=== PATIENT | female | born 1940 | race Caucasian/White ===

== ENCOUNTER 2020-12-21 18:49 | Emergency (ER) | payer MEDICARE, BC ==
[~2020-12-21 18:49] MED LIST: EPINEPHrine 10 ML SYRINGE (0.1 MG/ML) ONE; SODIUM BICARB 8.4% 50 ML SYR (1 MEQ/ML) ONE
[2020-12-21 18:54] LABS: Glucose,Whole Blood 193 mg/dL (75-99)
[2020-12-21] MEDS ORDERED: SODIUM CHLORIDE 0.9% 1,000 ML IV STA (18:57)
[2020-12-21 18:59] VITALS: TEMP 97
[2020-12-21] MEDS: NOREPINEPHRINE 4 MG in SODIUM CHLORIDE 0.9% 250 ML IV SCH ×2 (19:04→20:00)
--- NOTE | 2020-12-21 19:05 | ED ---
CPR HPI - General Chief Complaint: Cardiac Arrest/CPR Stated Complaint: cardiac arrest Time Seen by Provider: 12/21/20 18:49 Source: family, EMS, RN notes reviewed Mode of arrival: EMS Limitations: no limitations - History of Present Illness Initial Comments: This 80-year-old female who recently had a left hip replacement who was about her unusual activity and was on a commode when she apparently suddenly collapsed this did occur at around 17:35 5 PM. CPR was started right away and EMS was summoned she was given multiple ACLS medications and defibrillation shocks 6 for V. tach 2. Torsades to agonal rhythm. She was on a Lalo 3 compression device condition. Possible trauma reported as the patient was on a commode and did apparently fall sideways off of it. She did come in with a c-collar on. blood sugar was initially 58 she was given D50. CPR was in progress upon arrival. The patient was intubated by a #7 oral tracheal tube by paramedics. MD Complaint: collapsed during rest - Related Data Home Medications Medication Instructions Recorded Confirmed Acetaminophen [Tylenol Arthritis] 650 mg PO Q6H PRN 12/21/20 12/21/20 Aspirin EC [Ecotrin Low Dose] 81 mg PO BID 12/21/20 12/21/20 Insulin Aspart [NovoLOG Flexpen] 20 units SQ BID@0900,1700 12/21/20 12/21/20 Labetalol [Trandate] 200 mg PO Q8H 12/21/20 12/21/20 Sennosides [Senna] 8.6 mg PO Q12H PRN 12/21/20 12/21/20 calcitrioL [Rocaltrol] 0.25 mcg PO DAILY 12/21/20 12/21/20 hydrALAZINE HCL [Apresoline] 50 mg PO BID 12/21/20 12/21/20 Allergies Allergy/AdvReac Type Severity Reaction Status Date / Time No Known Allergies Allergy Verified 12/21/20 20:07 Review of Systems ROS Statement: Those systems with pertinent positive or pertinent negative responses have been documented in the HPI. ROS Other: All systems not noted in ROS Statement are negative. Limitations: ROS unobtainable due to patients medical condition Past Medical History Past Medical History: Unable to Obtain History of Any Multi-Drug Resistant Organisms: Unobtainable Past Surgical History: Unable to Obtain Past Psychological History: Unable to Obtain Smoking Status: Never smoker Past Alcohol Use History: Unable to Obtain Past Drug Use History: Unable to Obtain General Exam - General Exam Comments Initial Comments: This is a well-developed well-nourished unresponsive female CPR progress good pulses with the Lalo 3 device. Patient had been orotracheally intubated. Good breath sounds bilaterally. Limitations: no limitations, altered mental status, physical limitation General appearance: other Head exam: Present: atraumatic (Unresponsive), normocephalic, normal inspection Eye exam: Present: other (Pupils Wil 4 mm and) ENT exam: Present: other (Orotracheal tube in place) Neck exam: Present: normal inspection, other (No stridor JVD or bruits). Absent: tenderness, meningismus, lymphadenopathy Respiratory exam: Present: normal lung sounds bilaterally (With bag valve) Cardiovascular Exam: Present: regular rate, bradycardia GI/Abdominal exam: Present: soft, distended Rectal exam: Present: deferred Extremities exam: Present: normal inspection Back exam: Present: normal inspection Neurological exam: Present: altered, other (Unresponsive) Psychiatric exam: Present: other (Unable to evaluate) Skin exam: Present: dry, intact, pallor Course Vital Signs 12/21/20 12/21/20 12/21/20 18:50 19:00 19:06 Temperature 97.0 F L Pulse Rate 67 Pulse Rate [ 67 Dcs Engineer ] Respiratory 12 Rate Blood Pressure 117/44 73/37 O2 Sat by Pulse 100 Oximetry 12/21/20 12/21/20 12/21/20 19:22 19:41 20:44 Temperature Pulse Rate 72 72 68 Pulse Rate [ Dcs Engineer ] Respiratory 18 22 Rate Blood Pressure 91/46 115/48 110/53 O2 Sat by Pulse 100 100 Oximetry 12/21/20 12/21/20 12/21/20 21:17 21:44 22:11 Temperature Pulse Rate 61 64 56 L Pulse Rate [ Dcs Engineer ] Respiratory 22 24 19 Rate Blood Pressure 78/42 99/40 113/100 O2 Sat by Pulse 98 98 95 Oximetry - Reevaluation(s) Reevaluation #1: 12/21/20 19:05 The Lalo 111 produced positive and bilateral equal pulses she did maintain a blood pressure. 12/21/20 22:05 Reevaluation #2: 01/23/21 22:06 Patient was found have spontaneous return of circulation did maintain a blood pressure and pulse without Allo device and CPR. She however did develop hypotension and did require pressors and a central line Reevaluation #3: 12/21/20 22:08 I did a long discussion with the patient's daughters regarding the events and findings thus far. After discussion together the patient will remain on a ventilator and like supportive tonight she was noted to be moving her extremities. It is their thought however that the patient does go back into a cardiac arrest that cannot be treated. Supportive care only. Reevaluation #4: 12/21/20 22:14 Cervical collar was removed CT head neck are negative for acute findings. X-ra ys did show evidence of pneumonia Procedures - Central Line Placement Right SC Consent Obtained: emergent situation Patient Placed on Monitor/Pulse Ox: Yes Prep: mask, gown, gloves, other Central Line Prep: Chlorhexidine scrub Local Anesthesia Used: Lidocaine 1% Amount of Anesthesia Used (mls): 5 Ultrasound Used for Placement: No Central Line Lumen Inserted: triple Bloods Obtained for Lab: No Central Line Position: good blood return, all ports aspirated, flushed, capped, sutured in place with 3-0 nylon Dressing Applied: Tegaderm Post Procedure X-Ray: tip of catheter in good position Patient Tolerated Procedure: well Complications: none Medical Decision Making - Lab Data Result diagrams: 12/21/20 18:59 12/21/20 18:59 Lab Results 12/21/20 12/21/20 12/21/20 Range/Units 17:16 18:53 18:59 WBC 10.9 H (3.8-10.6) k/uL RBC 3.20 L (3.80-5.40) m/uL Hgb 7.3 L (11.4-16.0) gm/dL Hct 23.3 L (34.0-46.0) % MCV 72.8 L (80.0-100.0) fL MCH 22.9 L (25.0-35.0) pg MCHC 31.5 (31.0-37.0) g/dL RDW 16.7 H (11.5-15.5) % Plt Count 89 L (150-450) k/uL MPV 8.6 Neutrophils % (Manual) 38 % Band Neuts % (Manual) 18 % Lymphocytes % (Manual) 37 % Monocytes % (Manual) 1 % Eosinophils % (Manual) 1 % Metamyelocytes % 5 % Myelocytes % 1 % Neutrophils # (Manual) 6.10 (1.3-7.7) k/uL Lymphocytes # (Manual) 4.03 (1.0-4.8) k/uL Monocytes # (Manual) 0.11 (0-1.0) k/uL Eosinophils # (Manual) 0.11 (0-0.7) k/uL Metamyelocytes # (Man) 0.55 H (0) k/uL Myelocytes # (Manual) 0.11 H (0) k/uL Nucleated RBCs 22 H (0-0) /100 WBC Manual Slide Review Performed Hypochromasia Moderate Poikilocytosis Slight Anisocytosis Slight Microcytosis Moderate Ovalocytes Present Fragmented RBCs Present PT (9.0-12.0) sec INR (<1.2) APTT (22.0-30.0) sec D-Dimer (<0.60) mg/L FEU Sample Site ABG pH (7.35-7.45) ABG pCO2 (35-45) mmHg ABG pO2 (83-108) mmHg ABG HCO3 (21-25) mmol/L ABG Total CO2 (19-24) mmol/L ABG O2 Saturation (94-97) % ABG Base Excess mmol/L Edwin Test FiO2 % Sodium (137-145) mmol/L Potassium (3.5-5.1) mmol/L Chloride (98-107) mmol/L Carbon Dioxide (22-30) mmol/L Anion Gap mmol/L BUN (7-17) mg/dL Creatinine (0.52-1.04) mg/dL Est GFR (CKD-EPI)AfAm (>60 ml/min/1.73 sqM) Est GFR (CKD-EPI)NonAf (>60 ml/min/1.73 sqM) Glucose (74-99) mg/dL POC Glucose (mg/dL) 193 H (75-99) mg/dL POC Glu Egg Buyer ID Wolof, Yandy Calcium (8.4-10.2) mg/dL Magnesium (1.6-2.3) mg/dL Total Bilirubin (0.2-1.3) mg/dL AST (14-36) U/L ALT (4-34) U/L Alkaline Phosphatase (38-126) U/L Creatine Kinase (30-135) U/L Troponin I (0.000-0.034) ng/mL Total Protein (6.3-8.2) g/dL Albumin (3.5-5.0) g/dL TSH (0.465-4.680) mIU/L Urine Color Yellow Urine Appearance Cloudy H (Clear) Urine pH 5.0 (5.0-8.0) Ur Specific [place] 1.015 (1.001-1.035) Urine Protein 1+ H (Negative) Urine Glucose (UA) Negative (Negative) Urine Ketones Negative (Negative) Urine Blood Trace H (Negative) Urine Nitrite Negative (Negative) Urine Bilirubin Negative (Negative) Urine Urobilinogen 2.0 (<2.0) mg/dL Ur Leukocyte Esterase Small H (Negative) Urine RBC 1 (0-5) /hpf Urine WBC 7 H (0-5) /hpf Ur Squamous Epith Cells 2 (0-4) /hpf Urine Bacteria Rare H (None) /hpf Hyaline Casts 57 H (0-2) /lpf Urine Mucus Rare H (None) /hpf 12/21/20 12/21/20 12/21/20 Range/Units 18:59 18:59 18:59 WBC (3.8-10.6) k/uL RBC (3.80-5.40) m/uL Hgb (11.4-16.0) gm/dL Hct (34.0-46.0) % MCV (80.0-100.0) fL MCH (25.0-35.0) pg MCHC (31.0-37.0) g/dL RDW (11.5-15.5) % Plt Count (150-450) k/uL MPV Neutrophils % (Manual) % Band Neuts % (Manual) % Lymphocytes % (Manual) % Monocytes % (Manual) % Eosinophils % (Manual) % Metamyelocytes % % Myelocytes % % Neutrophils # (Manual) (1.3-7.7) k/uL Lymphocytes # (Manual) (1.0-4.8) k/uL Monocytes # (Manual) (0-1.0) k/uL Eosinophils # (Manual) (0-0.7) k/uL Metamyelocytes # (Man) (0) k/uL Myelocytes # (Manual) (0) k/uL Nucleated RBCs (0-0) /100 WBC Manual Slide Review Hypochromasia Poikilocytosis Anisocytosis Microcytosis Ovalocytes Fragmented RBCs PT 17.0 H (9.0-12.0) sec INR 1.7 H (<1.2) APTT 36.2 H (22.0-30.0) sec D-Dimer >34.10 H (<0.60) mg/L FEU Sample Site ABG pH (7.35-7.45) ABG pCO2 (35-45) mmHg ABG pO2 (83-108) mmHg ABG HCO3 (21-25) mmol/L ABG Total CO2 (19-24) mmol/L ABG O2 Saturation (94-97) % ABG Base Excess mmol/L Edwin Test FiO2 % Sodium 141 (137-145) mmol/L Potassium 4.0 (3.5-5.1) mmol/L Chloride 109 H (98-107) mmol/L Carbon Dioxide 19 L (22-30) mmol/L Anion Gap 13 mmol/L BUN 46 H (7-17) mg/dL Creatinine 1.81 H (0.52-1.04) mg/dL Est GFR (CKD-EPI)AfAm 30 (>60 ml/min/1.73 sqM) Est GFR (CKD-EPI)NonAf 26 (>60 ml/min/1.73 sqM) Glucose 164 H (74-99) mg/dL POC Glucose (mg/dL) (75-99) mg/dL POC Glu Egg Buyer ID Calcium 6.7 L (8.4-10.2) mg/dL Magnesium 3.6 H (1.6-2.3) mg/dL Total Bilirubin 1.6 H (0.2-1.3) mg/dL AST 4694 H (14-36) U/L ALT 2064 H (4-34) U/L Alkaline Phosphatase 59 (38-126) U/L Creatine Kinase 229 H (30-135) U/L Troponin I 0.049 H* (0.000-0.034) ng/mL Total Protein 3.1 L (6.3-8.2) g/dL Albumin 1.6 L (3.5-5.0) g/dL TSH 1.990 (0.465-4.680) mIU/L Urine Color Urine Appearance (Clear) Urine pH (5.0-8.0) Ur Specific [place] (1.001-1.035) Urine Protein (Negative) Urine Glucose (UA) (Negative) Urine Ketones (Negative) Urine Blood (Negative) Urine Nitrite (Negative) Urine Bilirubin (Negative) Urine Urobilinogen (<2.0) mg/dL Ur Leukocyte Esterase (Negative) Urine RBC (0-5) /hpf Urine WBC (0-5) /hpf Ur Squamous Epith Cells (0-4) /hpf Urine Bacteria (None) /hpf Hyaline Casts (0-2) /lpf Urine Mucus (None) /hpf 12/21/20 Range/Units 19:50 WBC (3.8-10.6) k/uL RBC (3.80-5.40) m/uL Hgb (11.4-16.0) gm/dL Hct (34.0-46.0) % MCV (80.0-100.0) fL MCH (25.0-35.0) pg MCHC (31.0-37.0) g/dL RDW (11.5-15.5) % Plt Count (150-450) k/uL MPV Neutrophils % (Manual) % Band Neuts % (Manual) % Lymphocytes % (Manual) % Monocytes % (Manual) % Eosinophils % (Manual) % Metamyelocytes % % Myelocytes % % Neutrophils # (Manual) (1.3-7.7) k/uL Lymphocytes # (Manual) (1.0-4.8) k/uL Monocytes # (Manual) (0-1.0) k/uL Eosinophils # (Manual) (0-0.7) k/uL Metamyelocytes # (Man) (0) k/uL Myelocytes # (Manual) (0) k/uL Nucleated RBCs (0-0) /100 WBC Manual Slide Review Hypochromasia Poikilocytosis Anisocytosis Microcytosis Ovalocytes Fragmented RBCs PT (9.0-12.0) sec INR (<1.2) APTT (22.0-30.0) sec D-Dimer (<0.60) mg/L FEU Sample Site Right Radial ABG pH 7.06 L* (7.35-7.45) ABG pCO2 38 (35-45) mmHg ABG pO2 160 H (83-108) mmHg ABG HCO3 11 L (21-25) mmol/L ABG Total CO2 12 L (19-24) mmol/L ABG O2 Saturation 97.8 H (94-97) % ABG Base Excess -19.5 mmol/L Edwin Test Yes FiO2 100 % Sodium (137-145) mmol/L Potassium (3.5-5.1) mmol/L Chloride (98-107) mmol/L Carbon Dioxide (22-30) mmol/L Anion Gap mmol/L BUN (7-17) mg/dL Creatinine (0.52-1.04) mg/dL Est GFR (CKD-EPI)AfAm (>60 ml/min/1.73 sqM) Est GFR (CKD-EPI)NonAf (>60 ml/min/1.73 sqM) Glucose (74-99) mg/dL POC Glucose (mg/dL) (75-99) mg/dL POC Glu Egg Buyer ID Calcium (8.4-10.2) mg/dL Magnesium (1.6-2.3) mg/dL Total Bilirubin (0.2-1.3) mg/dL AST (14-36) U/L ALT (4-34) U/L Alkaline Phosphatase (38-126) U/L Creatine Kinase (30-135) U/L Troponin I (0.000-0.034) ng/mL Total Protein (6.3-8.2) g/dL Albumin (3.5-5.0) g/dL TSH (0.465-4.680) mIU/L Urine Color Urine Appearance (Clear) Urine pH (5.0-8.0) Ur Specific [place] (1.001-1.035) Urine Protein (Negative) Urine Glucose (UA) (Negative) Urine Ketones (Negative) Urine Blood (Negative) Urine Nitrite (Negative) Urine Bilirubin (Negative) Urine Urobilinogen (<2.0) mg/dL Ur Leukocyte Esterase (Negative) Urine RBC (0-5) /hpf Urine WBC (0-5) /hpf Ur Squamous Epith Cells (0-4) /hpf Urine Bacteria (None) /hpf Hyaline Casts (0-2) /lpf Urine Mucus (None) /hpf - Radiology Data Radiology results: report reviewed (Imaging reviewed evidence of bilateral pneumonia no evidence of PE. The central line and endotracheal tube appeared be in good position.), image reviewed Critical Care Time Critical Care Time: Yes Total Critical Care Time: 49 Critical Care Time: Crit was care time included initial presentation with history physical labs x- rays multiple reevaluation the patient to responsive therapy this did not include central line placement. This did also include review of old charting was available discussion with the patient's family regarding findings discussion with Dr. Leo as well as Dr. Ambrosio. Documentation the above and admission orders. Disposition Clinical Impression: Cardiac arrest, Signs of return of spontaneous circulation, Hypoglycemia, Hypotension, Pneumonia, Acidosis, Chronic renal insufficiency Disposition: ADMITTED IP TO THIS [facility] Condition: Critical Referrals: Reginald Garcia DO [Primary Care Provider] - 1-2 days
[2020-12-21] MEDS ORDERED: ATROPINE SULFATE 0.1 MG/ML 10ML SYRINGE IV STA (19:18)
--- NOTE | 2020-12-21 19:22 | XR ---
EXAMINATION TYPE: XR chest 1V confirm line [facility] DATE OF EXAM: 12/21/2020 COMPARISON: NONE HISTORY: Check tube placement TECHNIQUE: Single view FINDINGS: Endotracheal tube is 2 cm from the benito. There is nasogastric tube in the stomach. There is some airspace infiltrate right upper lobe. I see no pleural effusion. There is no heart failure. E xam limited by artifact. IMPRESSION: There is some right upper lobe pneumonia. No heart failure.
[2020-12-21 19:23] LABS: Anisocytosis Slight; HCT 23.3 % (34.0-46.0); HGB 7.3 gm/dL (11.4-16.0); Hypochromasia Moderate; MCH 22.9 pg (25.0-35.0); MCHC 31.5 g/dL (31.0-37.0); MCV 72.8 fL (80.0-100.0); Mean Platelet Volume 8.6; Microcytosis Moderate; Poikilocytosis Slight; RDW 16.7 % (11.5-15.5)
[2020-12-21 19:40] LABS: Albumin 1.6 g/dL (3.5-5.0); Calcium 6.7 mg/dL (8.4-10.2); Magnesium 3.6 mg/dL (1.6-2.3); Total Bilirubin 1.6 mg/dL (0.2-1.3); Total Protein 3.1 g/dL (6.3-8.2)
[2020-12-21 19:53] LABS: ABG Base Excess -19.5 mmol/L; ABG HCO3 11 mmol/L (21-25); ABG Oxygen Saturation 97.8 % (94-97); ABG PCO2 38 mmHg (35-45); ABG PO2 160 mmHg (83-108); ABG TCO2 12 mmol/L (19-24); Allen Test Performed? Yes
[2020-12-21 19:54] LABS: ABG PH 7.06 (7.35-7.45)
[2020-12-21 19:57] LABS: INR 1.7 (<1.2); Partial Thromboplastin Time 36.2 sec (22.0-30.0)
[2020-12-21 19:58] LABS: Band Neutrophils % 18 %; Metamyelocytes % 5 %; Myelocytes % 1 %; Neutrophils % (M) 38 %; Nucleated Red Blood Cells 22 /100 WBC (0-0); Total Cells Counted 200
[2020-12-21 19:59] LABS: Eosinophils # (M) 0.11 k/uL (0-0.7); Lymphocytes # (M) 4.03 k/uL (1.0-4.8); Metamyelocytes # (M) 0.55 k/uL (0); Monocytes # (M) 0.11 k/uL (0-1.0); Myelocytes # (M) 0.11 k/uL (0); Platelet Count 89 k/uL (150-450); WBC 10.9 k/uL (3.8-10.6)
[2020-12-21 20:00] LABS: Ovalocytes Present; RBC Fragments Present
[2020-12-21] MEDS ORDERED: NOREPINEPHRINE 4 MG in SODIUM CHLORIDE 0.9% 250 ML IV ONE (20:00)
--- NOTE | 2020-12-21 20:00 | XR ---
EXAMINATION TYPE: XR chest 1V portable DATE OF EXAM: 12/21/2020 COMPARISON: Today HISTORY: Check tube placement TECHNIQUE: FINDINGS: Endotracheal tube is 3.5 cm from the benito. There is nasogastric tube in the stomach. Ther e is right subclavian catheter with tip in the superior vena cava. There is some patchy infiltrate in the right upper lobe and right lower lobe. There is also some left lower lobe infiltrate and atelect asis at the left cardiac border. IMPRESSION: Bilateral pulmonary infiltrates slightly increased compared to exam one hour ago.
[2020-12-21] MEDS ORDERED: SODIUM BICARB 8.4% 50 ML SYR (1 MEQ/ML) IV STA (20:01)
[2020-12-21 20:03] LABS: D-Dimer >34.10 mg/L FEU (<0.60)
--- NOTE | 2020-12-21 20:42 | CT ---
EXAMINATION TYPE: CT brain [facility]ona horn con DATE OF EXAM: 12/21/2020 COMPARISON: None HISTORY: Elevated d-dimer, unresponsive CT DLP: 1417.4 mGycm Automated exposure control for dose reduction was used. There is cerebral cortical atrophy is no mass effect nor midline shift. There is no sign of intracran ial hemorrhage. Calvarium is intact skull base is intact. Cervical vertebra have normal alignment. There is mild disc space narrowing at the endplates. There i s mild spur formation the facet joints at C6-7. There is no evidence of a fracture. IMPRESSION: Spondylotic changes in the lower cervical spine. No fracture. Cerebral atrophy. No acute intracranial abnormality
--- NOTE | 2020-12-21 20:49 | CT ---
EXAMINATION TYPE: CT angio chest DATE OF EXAM: 12/21/2020 COMPARISON: None HISTORY: Elevated d-dimer, unresponsive CT DLP: 467.5 mGycm Automated exposure control for dose reduction was used. CONTRAST: Performed with IV Contrast, patient injected with 80 mL of Isovue 370. There are 3-D post processed images. There is airspace consolidation and atelectasis left lower lobe posteriorly. There is mild right pleu ral effusion. Heart is enlarged. There is perihilar bilateral pulmonary interstitial infiltrates ther e is some wedge-shaped area of infiltrate and atelectasis posterior segment of the right upper lobe s imilar infiltrate and atelectasis posterior segment left upper lobe. There is endotracheal tube. There is nasogastric tube there is no mediastinal adenopathy. Thoracic ao rta is intact. There is no aneurysm or dissection. There is normal contrast opacification of the pulmonary arteries. There are no filling defects. There is some spurring in the thoracic spine. Sternum detail is limited due to motion. Sternal fractures a re possible. There is anterior fractures. There is also multiple anterior and lateral right rib fract ures IMPRESSION: No evidence of pulmonary embolism. Bilateral pneumonia and atelectasis as above. Bilateral rib fractures and probable sternal fracture.
[2020-12-21 21:42] LABS: Appearance,Urine Cloudy (Clear); Bacteria,Urine Rare /hpf; Bilirubin,Urine Negative (Negative); Blood,Urine Trace (Negative); Color,Urine Yellow; Glucose,Urine (UA) Negative (Negative); Hyaline Casts,Urine 57 /lpf (0-2); Ketones,Urine Negative (Negative); Leukocyte Esterase,Urine Small (Negative); Mucus,Urine Rare /hpf; Nitrite,Urine Negative (Negative); Protein,Urine 1+ (Negative); RBC,Urine 1 /hpf (0-5); Specific Gravity,Urine 1.015 (1.001-1.035); Squamous Epithelial Cell,Urine 2 /hpf (0-4); WBC,Urine 7 /hpf (0-5)
[2020-12-21] MEDS ORDERED: NOREPINEPHRINE 32 MG in SODIUM CHLORIDE 0.9% 218 ML IV ONE (22:00)
--- NOTE | 2020-12-21 22:06 | P.HPIM ---
History of Present Illness H&P Date: 12/21/20 Chief Complaint: Cardiac arrest History of presenting complaint: This is a 80-year-old patient of Dr. Sammy Donohue. Patient had hip replaced 5 days ago. Patient was at [facility] for recuperation. Uses a walker. Patient is feeling dizzy tired. And she fell down from the toilet seat. She had no pulse. CPR was started. EMS was called out. Patient did receive about 7 was of epinephrine. In the ER she received 1 more. Pulse did come back. She was put on levo fed. Given 1 dose of atropine and sodium bicarbonate. Intubated. Dr. Ambrosio from [facility] was contacted and patient being admitted to the ICU. Patient's daughter at the bedside. Patient was seen by me in the ER. Review of systems cannot be done patient is intubated. Past medical history to include: Hypertension, diabetes, arthritis Social history: Currently [facility] Family history: Patient cannot tell Physical examination: VITAL SIGNS: 97, 67, 12, 117/44, 100% GENERAL: BMI 33.9, laying in bed, intubated. EYES: Pupils equal. Conjunctiva normal. HEENT: External appearance of nose and ears normal, oral cavity-endotracheal tube. NECK: JVD unable to assess; masses not palpable. HEART: First and second heart sounds are normal; no edema. LUNGS: Respiratory rate normal; decreased breath sounds. ABDOMEN: Soft, nontender, liver spleen not palpable, no masses palpable. PSYCH: Patient intubatedl. NEUROLOGICAL: Pupils are enlarged and very slight sluggish to light, no corneal reflex, doll's eye movement absent some spontaneous movement of eyelids and arms t]. LYMPHATICS: No lymph nodes palpable in the axilla and neck INVESTIGATIONS, reviewed in the clinical context: White count 10.9 hemoglobin 7.3 platelets 89 ABG-pH 7.06 pO2 160 potassium 4 bicarb 19 BUN 46 creatinine 1.81 AST 4694 ALT 2064 Troponin I 0.049 Chest CTA-no evidence of PE, bilateral pneumonia, bilateral rib fractures and probable sternal fracture Computed tomography scan of the brain and spine without contrast-cerebral atrophy. Spondylytic changes Chest x-ray film personally reviewed by me-bilateral infiltrates Assessment: -Cardiac arrest in the field witnessed. Patient received about 7 epinephrine. Currently on levo fed. Also see 1 dose of atropine. -Acute hypoxic respiratory failure requiring ventilator assistance -Cardiogenic shock requiring levo fed -Bilateral pneumonia suspected aspiration -Obesity BMI 33.9 -Essential hypertension -Diabetes mellitus type 2 chronically on insulin -Primary osteoarthritis -Recent left hip replacement 6 days ago -Anoxic brain injury -DO NOT RESUSCITATE Plan: Care was discussed with the patient's daughter the bedside. She understands prognosis guarded. Patient's getting IV fluids and levo fed. IV Zosyn. Lovenox for DVT prophylaxis. Patient be going to the ICU under the [facility] wellness [facility]. is especially her physician and the patient is to arrest the not to be further resuscitated. Past Medical History Past Medical History: Unable to Obtain History of Any Multi-Drug Resistant Organisms: Unobtainable Past Surgical History: Unable to Obtain Past Psychological History: Unable to Obtain Smoking Status: Never smoker Past Alcohol Use History: Unable to Obtain Past Drug Use History: Unable to Obtain Medications and Allergies Home Medications Medication Instructions Recorded Confirmed Type Acetaminophen [Tylenol Arthritis] 650 mg PO Q6H PRN 12/21/20 12/21/20 History Aspirin EC [Ecotrin Low Dose] 81 mg PO BID 12/21/20 12/21/20 History Insulin Aspart [NovoLOG Flexpen] 20 units SQ BID@0900,1700 12/21/20 12/21/20 History Labetalol [Trandate] 200 mg PO Q8H 12/21/20 12/21/20 History Sennosides [Senna] 8.6 mg PO Q12H PRN 12/21/20 12/21/20 History calcitrioL [Rocaltrol] 0.25 mcg PO DAILY 12/21/20 12/21/20 History hydrALAZINE HCL [Apresoline] 50 mg PO BID 12/21/20 12/21/20 History Allergies Allergy/AdvReac Type Severity Reaction Status Date / Time No Known Allergies Allergy Verified 12/21/20 20:07 Physical Exam Vitals: Vital Signs Temp Pulse Pulse Resp BP Pulse Ox 12/21/20 21:44 64 24 99/40 98 12/21/20 21:17 61 22 78/42 98 12/21/20 20:44 68 22 110/53 100 12/21/20 19:41 72 18 115/48 100 12/21/20 19:22 72 91/46 01/23/21 19:06 73/37 12/21/20 19:00 67 12/21/20 18:50 97.0 F L 67 12 117/44 100 Intake and Output 12/21/20 12/21/20 12/21/20 06:59 14:59 22:59 Intake Total 254.000 Balance 254.000 Intake: Intake, IV Titration 254.000 Amount Norepinephrine 4 mg In 254.000 Sodium Chloride 0.9% 250 ml @ 0.05 MCG/KG/MIN 18. 146 mls/hr IV .Q14H CARMINA Rx#:[id number] Other: Weight 95.254 kg Results CBC & Chem 7: 12/21/20 18:59 12/21/20 18:59 Labs: Abnormal Lab Results - Last 24 Hours (Table) 12/21/20 12/21/20 12/21/20 Range/Units 17:16 18:53 18:59 WBC 10.9 H (3.8-10.6) k/uL RBC 3.20 L (3.80-5.40) m/uL Hgb 7.3 L (11.4-16.0) gm/dL Hct 23.3 L (34.0-46.0) % MCV 72.8 L (80.0-100.0) fL MCH 22.9 L (25.0-35.0) pg RDW 16.7 H (11.5-15.5) % Plt Count 89 L (150-450) k/uL Metamyelocytes # (Man) 0.55 H (0) k/uL Myelocytes # (Manual) 0.11 H (0) k/uL Nucleated RBCs 22 H (0-0) /100 WBC PT (9.0-12.0) sec INR (<1.2) APTT (22.0-30.0) sec D-Dimer (<0.60) mg/L FEU ABG pH (7.35-7.45) ABG pO2 (83-108) mmHg ABG HCO3 (21-25) mmol/L ABG Total CO2 (19-24) mmol/L ABG O2 Saturation (94-97) % Chloride (98-107) mmol/L Carbon Dioxide (22-30) mmol/L BUN (7-17) mg/dL Creatinine (0.52-1.04) mg/dL Glucose (74-99) mg/dL POC Glucose (mg/dL) 193 H (75-99) mg/dL Calcium (8.4-10.2) mg/dL Magnesium (1.6-2.3) mg/dL Total Bilirubin (0.2-1.3) mg/dL AST (14-36) U/L ALT (4-34) U/L Creatine Kinase (30-135) U/L Troponin I (0.000-0.034) ng/mL Total Protein (6.3-8.2) g/dL Albumin (3.5-5.0) g/dL Urine Appearance Cloudy H (Clear) Urine Protein 1+ H (Negative) Urine Blood Trace H (Negative) Ur Leukocyte Esterase Small H (Negative) Urine WBC 7 H (0-5) /hpf Urine Bacteria Rare H (None) /hpf Hyaline Casts 57 H (0-2) /lpf Urine Mucus Rare H (None) /hpf 12/21/20 12/21/20 12/21/20 Range/Units 18:59 18:59 18:59 WBC (3.8-10.6) k/uL RBC (3.80-5.40) m/uL Hgb (11.4-16.0) gm/dL Hct (34.0-46.0) % MCV (80.0-100.0) fL MCH (25.0-35.0) pg RDW (11.5-15.5) % Plt Count (150-450) k/uL Metamyelocytes # (Man) (0) k/uL Myelocytes # (Manual) (0) k/uL Nucleated RBCs (0-0) /100 WBC PT 17.0 H (9.0-12.0) sec INR 1.7 H (<1.2) APTT 36.2 H (22.0-30.0) sec D-Dimer >34.10 H (<0.60) mg/L FEU ABG pH (7.35-7.45) ABG pO2 (83-108) mmHg ABG HCO3 (21-25) mmol/L ABG Total CO2 (19-24) mmol/L ABG O2 Saturation (94-97) % Chloride 109 H (98-107) mmol/L Carbon Dioxide 19 L (22-30) mmol/L BUN 46 H (7-17) mg/dL Creatinine 1.81 H (0.52-1.04) mg/dL Glucose 164 H (74-99) mg/dL POC Glucose (mg/dL) (75-99) mg/dL Calcium 6.7 L (8.4-10.2) mg/dL Magnesium 3.6 H (1.6-2.3) mg/dL Total Bilirubin 1.6 H (0.2-1.3) mg/dL AST 4694 H (14-36) U/L ALT 2064 H (4-34) U/L Creatine Kinase 229 H (30-135) U/L Troponin I 0.049 H* (0.000-0.034) ng/mL Total Protein 3.1 L (6.3-8.2) g/dL Albumin 1.6 L (3.5-5.0) g/dL Urine Appearance (Clear) Urine Protein (Negative) Urine Blood (Negative) Ur Leukocyte Esterase (Negative) Urine WBC (0-5) /hpf Urine Bacteria (None) /hpf Hyaline Casts (0-2) /lpf Urine Mucus (None) /hpf 12/21/20 Range/Units 19:50 WBC (3.8-10.6) k/uL RBC (3.80-5.40) m/uL Hgb (11.4-16.0) gm/dL Hct (34.0-46.0) % MCV (80.0-100.0) fL MCH (25.0-35.0) pg RDW (11.5-15.5) % Plt Count (150-450) k/uL Metamyelocytes # (Man) (0) k/uL Myelocytes # (Manual) (0) k/uL Nucleated RBCs (0-0) /100 WBC PT (9.0-12.0) sec INR (<1.2) APTT (22.0-30.0) sec D-Dimer (<0.60) mg/L FEU ABG pH 7.06 L* (7.35-7.45) ABG pO2 160 H (83-108) mmHg ABG HCO3 11 L (21-25) mmol/L ABG Total CO2 12 L (19-24) mmol/L ABG O2 Saturation 97.8 H (94-97) % Chloride (98-107) mmol/L Carbon Dioxide (22-30) mmol/L BUN (7-17) mg/dL Creatinine (0.52-1.04) mg/dL Glucose (74-99) mg/dL POC Glucose (mg/dL) (75-99) mg/dL Calcium (8.4-10.2) mg/dL Magnesium (1.6-2.3) mg/dL Total Bilirubin (0.2-1.3) mg/dL AST (14-36) U/L ALT (4-34) U/L Creatine Kinase (30-135) U/L Troponin I (0.000-0.034) ng/mL Total Protein (6.3-8.2) g/dL Albumin (3.5-5.0) g/dL Urine Appearance (Clear) Urine Protein (Negative) Urine Blood (Negative) Ur Leukocyte Esterase (Negative) Urine WBC (0-5) /hpf Urine Bacteria (None) /hpf Hyaline Casts (0-2) /lpf Urine Mucus (None) /hpf
[2020-12-21] MEDS ORDERED: LORazepam 2 MG/ML INJ IV STA (22:08)
[2020-12-21] MEDS ORDERED: ENOXAPARIN 40 MG/0.4 ML SYRINGE SQ SCH (22:15)
[2020-12-21] MEDS ORDERED: FAMOTIDINE 20 MG/2 ML VIAL IV SCH (22:15)
--- NOTE | 2020-12-21 22:26 | ED ---
Medical Decision Making - Lab Data Result diagrams: 12/21/20 18:59 12/21/20 18:59 Lab Results 12/21/20 12/21/20 12/21/20 Range/Units 17:16 18:53 18:59 WBC 10.9 H (3.8-10.6) k/uL RBC 3.20 L (3.80-5.40) m/uL Hgb 7.3 L (11.4-16.0) gm/dL Hct 23.3 L (34.0-46.0) % MCV 72.8 L (80.0-100.0) fL MCH 22.9 L (25.0-35.0) pg MCHC 31.5 (31.0-37.0) g/dL RDW 16.7 H (11.5-15.5) % Plt Count 89 L (150-450) k/uL MPV 8.6 Neutrophils % (Manual) 38 % Band Neuts % (Manual) 18 % Lymphocytes % (Manual) 37 % Monocytes % (Manual) 1 % Eosinophils % (Manual) 1 % Metamyelocytes % 5 % Myelocytes % 1 % Neutrophils # (Manual) 6.10 (1.3-7.7) k/uL Lymphocytes # (Manual) 4.03 (1.0-4.8) k/uL Monocytes # (Manual) 0.11 (0-1.0) k/uL Eosinophils # (Manual) 0.11 (0-0.7) k/uL Metamyelocytes # (Man) 0.55 H (0) k/uL Myelocytes # (Manual) 0.11 H (0) k/uL Nucleated RBCs 22 H (0-0) /100 WBC Manual Slide Review Performed Hypochromasia Moderate Poikilocytosis Slight Anisocytosis Slight Microcytosis Moderate Ovalocytes Present Fragmented RBCs Present PT (9.0-12.0) sec INR (<1.2) APTT (22.0-30.0) sec D-Dimer (<0.60) mg/L FEU Sample Site ABG pH (7.35-7.45) ABG pCO2 (35-45) mmHg ABG pO2 (83-108) mmHg ABG HCO3 (21-25) mmol/L ABG Total CO2 (19-24) mmol/L ABG O2 Saturation (94-97) % ABG Base Excess mmol/L Edwin Test FiO2 % Sodium (137-145) mmol/L Potassium (3.5-5.1) mmol/L Chloride (98-107) mmol/L Carbon Dioxide (22-30) mmol/L Anion Gap mmol/L BUN (7-17) mg/dL Creatinine (0.52-1.04) mg/dL Est GFR (CKD-EPI)AfAm (>60 ml/min/1.73 sqM) Est GFR (CKD-EPI)NonAf (>60 ml/min/1.73 sqM) Glucose (74-99) mg/dL POC Glucose (mg/dL) 193 H (75-99) mg/dL POC Glu Biomedical Engineering Director ID Yandy Beverly Calcium (8.4-10.2) mg/dL Magnesium (1.6-2.3) mg/dL Total Bilirubin (0.2-1.3) mg/dL AST (14-36) U/L ALT (4-34) U/L Alkaline Phosphatase (38-126) U/L Creatine Kinase (30-135) U/L Troponin I (0.000-0.034) ng/mL Total Protein (6.3-8.2) g/dL Albumin (3.5-5.0) g/dL TSH (0.465-4.680) mIU/L Urine Color Yellow Urine Appearance Cloudy H (Clear) Urine pH 5.0 (5.0-8.0) Ur Specific Jackson 1.015 (1.001-1.035) Urine Protein 1+ H (Negative) Urine Glucose (UA) Negative (Negative) Urine Ketones Negative (Negative) Urine Blood Trace H (Negative) Urine Nitrite Negative (Negative) Urine Bilirubin Negative (Negative) Urine Urobilinogen 2.0 (<2.0) mg/dL Ur Leukocyte Esterase Small H (Negative) Urine RBC 1 (0-5) /hpf Urine WBC 7 H (0-5) /hpf Ur Squamous Epith Cells 2 (0-4) /hpf Urine Bacteria Rare H (None) /hpf Hyaline Casts 57 H (0-2) /lpf Urine Mucus Rare H (None) /hpf 12/21/20 12/21/20 12/21/20 Range/Units 18:59 18:59 18:59 WBC (3.8-10.6) k/uL RBC (3.80-5.40) m/uL Hgb (11.4-16.0) gm/dL Hct (34.0-46.0) % MCV (80.0-100.0) fL MCH (25.0-35.0) pg MCHC (31.0-37.0) g/dL RDW (11.5-15.5) % Plt Count (150-450) k/uL MPV Neutrophils % (Manual) % Band Neuts % (Manual) % Lymphocytes % (Manual) % Monocytes % (Manual) % Eosinophils % (Manual) % Metamyelocytes % % Myelocytes % % Neutrophils # (Manual) (1.3-7.7) k/uL Lymphocytes # (Manual) (1.0-4.8) k/uL Monocytes # (Manual) (0-1.0) k/uL Eosinophils # (Manual) (0-0.7) k/uL Metamyelocytes # (Man) (0) k/uL Myelocytes # (Manual) (0) k/uL Nucleated RBCs (0-0) /100 WBC Manual Slide Review Hypochromasia Poikilocytosis Anisocytosis Microcytosis Ovalocytes Fragmented RBCs PT 17.0 H (9.0-12.0) sec INR 1.7 H (<1.2) APTT 36.2 H (22.0-30.0) sec D-Dimer >34.10 H (<0.60) mg/L FEU Sample Site ABG pH (7.35-7.45) ABG pCO2 (35-45) mmHg ABG pO2 (83-108) mmHg ABG HCO3 (21-25) mmol/L ABG Total CO2 (19-24) mmol/L ABG O2 Saturation (94-97) % ABG Base Excess mmol/L Edwin Test FiO2 % Sodium 141 (137-145) mmol/L Potassium 4.0 (3.5-5.1) mmol/L Chloride 109 H (98-107) mmol/L Carbon Dioxide 19 L (22-30) mmol/L Anion Gap 13 mmol/L BUN 46 H (7-17) mg/dL Creatinine 1.81 H (0.52-1.04) mg/dL Est GFR (CKD-EPI)AfAm 30 (>60 ml/min/1.73 sqM) Est GFR (CKD-EPI)NonAf 26 (>60 ml/min/1.73 sqM) Glucose 164 H (74-99) mg/dL POC Glucose (mg/dL) (75-99) mg/dL POC Glu Biomedical Engineering Director ID Calcium 6.7 L (8.4-10.2) mg/dL Magnesium 3.6 H (1.6-2.3) mg/dL Total Bilirubin 1.6 H (0.2-1.3) mg/dL AST 4694 H (14-36) U/L ALT 2064 H (4-34) U/L Alkaline Phosphatase 59 (38-126) U/L Creatine Kinase 229 H (30-135) U/L Troponin I 0.049 H* (0.000-0.034) ng/mL Total Protein 3.1 L (6.3-8.2) g/dL Albumin 1.6 L (3.5-5.0) g/dL TSH 1.990 (0.465-4.680) mIU/L Urine Color Urine Appearance (Clear) Urine pH (5.0-8.0) Ur Specific Jackson (1.001-1.035) Urine Protein (Negative) Urine Glucose (UA) (Negative) Urine Ketones (Negative) Urine Blood (Negative) Urine Nitrite (Negative) Urine Bilirubin (Negative) Urine Urobilinogen (<2.0) mg/dL Ur Leukocyte Esterase (Negative) Urine RBC (0-5) /hpf Urine WBC (0-5) /hpf Ur Squamous Epith Cells (0-4) /hpf Urine Bacteria (None) /hpf Hyaline Casts (0-2) /lpf Urine Mucus (None) /hpf 12/21/20 Range/Units 19:50 WBC (3.8-10.6) k/uL RBC (3.80-5.40) m/uL Hgb (11.4-16.0) gm/dL Hct (34.0-46.0) % MCV (80.0-100.0) fL MCH (25.0-35.0) pg MCHC (31.0-37.0) g/dL RDW (11.5-15.5) % Plt Count (150-450) k/uL MPV Neutrophils % (Manual) % Band Neuts % (Manual) % Lymphocytes % (Manual) % Monocytes % (Manual) % Eosinophils % (Manual) % Metamyelocytes % % Myelocytes % % Neutrophils # (Manual) (1.3-7.7) k/uL Lymphocytes # (Manual) (1.0-4.8) k/uL Monocytes # (Manual) (0-1.0) k/uL Eosinophils # (Manual) (0-0.7) k/uL Metamyelocytes # (Man) (0) k/uL Myelocytes # (Manual) (0) k/uL Nucleated RBCs (0-0) /100 WBC Manual Slide Review Hypochromasia Poikilocytosis Anisocytosis Microcytosis Ovalocytes Fragmented RBCs PT (9.0-12.0) sec INR (<1.2) APTT (22.0-30.0) sec D-Dimer (<0.60) mg/L FEU Sample Site Right Radial ABG pH 7.06 L* (7.35-7.45) ABG pCO2 38 (35-45) mmHg ABG pO2 160 H (83-108) mmHg ABG HCO3 11 L (21-25) mmol/L ABG Total CO2 12 L (19-24) mmol/L ABG O2 Saturation 97.8 H (94-97) % ABG Base Excess -19.5 mmol/L Edwin Test Yes FiO2 100 % Sodium (137-145) mmol/L Potassium (3.5-5.1) mmol/L Chloride (98-107) mmol/L Carbon Dioxide (22-30) mmol/L Anion Gap mmol/L BUN (7-17) mg/dL Creatinine (0.52-1.04) mg/dL Est GFR (CKD-EPI)AfAm (>60 ml/min/1.73 sqM) Est GFR (CKD-EPI)NonAf (>60 ml/min/1.73 sqM) Glucose (74-99) mg/dL POC Glucose (mg/dL) (75-99) mg/dL POC Glu Biomedical Engineering Director ID Calcium (8.4-10.2) mg/dL Magnesium (1.6-2.3) mg/dL Total Bilirubin (0.2-1.3) mg/dL AST (14-36) U/L ALT (4-34) U/L Alkaline Phosphatase (38-126) U/L Creatine Kinase (30-135) U/L Troponin I (0.000-0.034) ng/mL Total Protein (6.3-8.2) g/dL Albumin (3.5-5.0) g/dL TSH (0.465-4.680) mIU/L Urine Color Urine Appearance (Clear) Urine pH (5.0-8.0) Ur Specific Jackson (1.001-1.035) Urine Protein (Negative) Urine Glucose (UA) (Negative) Urine Ketones (Negative) Urine Blood (Negative) Urine Nitrite (Negative) Urine Bilirubin (Negative) Urine Urobilinogen (<2.0) mg/dL Ur Leukocyte Esterase (Negative) Urine RBC (0-5) /hpf Urine WBC (0-5) /hpf Ur Squamous Epith Cells (0-4) /hpf Urine Bacteria (None) /hpf Hyaline Casts (0-2) /lpf Urine Mucus (None) /hpf Disposition Clinical Impression: Cardiac arrest, Signs of return of spontaneous circulation, Hypoglycemia, Hypotension, Pneumonia, Acidosis, Chronic renal insufficiency, Anemia, Recent fracture of hip, Elevated troponin, Elevated d-dimer Disposition: ADMITTED IP TO THIS [facility] Condition: Critical Referrals: Reginald Garcia DO [Primary Care Provider] - 1-2 days Procedures - [place] Protocol (Time Out) Procedure Performed:: central line Performing Provider: Edward Agudelo Nurse: Lakshmi Moser Patient Identification (2 identifiers required): Chart, Verbal, Arm Band, Name, Birthdate, Medical Record Number, Social Security Number Patient/Legal Assembly Department Supervisor has Confirmed: Identity, Site, Procedure, Consent Site: right subclavian Site Marked: Yes Site Verified With Patient/Guardian: Yes
[2020-12-21 22:44] VITALS: BP 121/96
--- NOTE | 2020-12-21 22:54 | ED ---
Medical Decision Making - Medical Decision Making The patient was noted to have declining blood pressure and pulse. Patient became asystolic and pulseless fixed dilated pupils. Multiple family members at bedside. Patient was pronounced at [address] 2:[address] Ambrosio and Dr. Leo or notified. sock lining examiner's office is contacted. Will not be a medical superintendent's case - Lab Data Result diagrams: 12/21/20 18:59 12/21/20 18:59 Lab Results 12/21/20 12/21/20 12/21/20 Range/Units 17:16 18:53 18:54 WBC (3.8-10.6) k/uL RBC (3.80-5.40) m/uL Hgb (11.4-16.0) gm/dL Hct (34.0-46.0) % MCV (80.0-100.0) fL MCH (25.0-35.0) pg MCHC (31.0-37.0) g/dL RDW (11.5-15.5) % Plt Count (150-450) k/uL MPV Neutrophils % (Manual) % Band Neuts % (Manual) % Lymphocytes % (Manual) % Monocytes % (Manual) % Eosinophils % (Manual) % Metamyelocytes % % Myelocytes % % Neutrophils # (Manual) (1.3-7.7) k/uL Lymphocytes # (Manual) (1.0-4.8) k/uL Monocytes # (Manual) (0-1.0) k/uL Eosinophils # (Manual) (0-0.7) k/uL Metamyelocytes # (Man) (0) k/uL Myelocytes # (Manual) (0) k/uL Nucleated RBCs (0-0) /100 WBC Manual Slide Review Hypochromasia Poikilocytosis Anisocytosis Microcytosis Ovalocytes Fragmented RBCs PT (9.0-12.0) sec INR (<1.2) APTT (22.0-30.0) sec D-Dimer (<0.60) mg/L FEU Sample Site ABG pH (7.35-7.45) ABG pCO2 (35-45) mmHg ABG pO2 (83-108) mmHg ABG HCO3 (21-25) mmol/L ABG Total CO2 (19-24) mmol/L ABG O2 Saturation (94-97) % ABG Base Excess mmol/L Edwin Test FiO2 % Sodium (137-145) mmol/L Potassium (3.5-5.1) mmol/L Chloride (98-107) mmol/L Carbon Dioxide (22-30) mmol/L Anion Gap mmol/L BUN (7-17) mg/dL Creatinine (0.52-1.04) mg/dL Est GFR (CKD-EPI)AfAm (>60 ml/min/1.73 sqM) Est GFR (CKD-EPI)NonAf (>60 ml/min/1.73 sqM) Glucose (74-99) mg/dL POC Glucose (mg/dL) 193 H (75-99) mg/dL POC Glu Resource Engineer ID Yandy Beverly Calcium (8.4-10.2) mg/dL Magnesium (1.6-2.3) mg/dL Total Bilirubin (0.2-1.3) mg/dL AST (14-36) U/L ALT (4-34) U/L Alkaline Phosphatase (38-126) U/L Creatine Kinase (30-135) U/L Troponin I (0.000-0.034) ng/mL Total Protein (6.3-8.2) g/dL Albumin (3.5-5.0) g/dL TSH (0.465-4.680) mIU/L Urine Color Yellow Urine Appearance Cloudy H (Clear) Urine pH 5.0 (5.0-8.0) Ur Specific [place] 1.015 (1.001-1.035) Urine Protein 1+ H (Negative) Urine Glucose (UA) Negative (Negative) Urine Ketones Negative (Negative) Urine Blood Trace H (Negative) Urine Nitrite Negative (Negative) Urine Bilirubin Negative (Negative) Urine Urobilinogen 2.0 (<2.0) mg/dL Ur Leukocyte Esterase Small H (Negative) Urine RBC 1 (0-5) /hpf Urine WBC 7 H (0-5) /hpf Ur Squamous Epith Cells 2 (0-4) /hpf Urine Bacteria Rare H (None) /hpf Hyaline Casts 57 H (0-2) /lpf Urine Mucus Rare H (None) /hpf Blood Type Recheck No Previous Record Bld Type Recheck Status CABO Indicated 12/21/20 12/21/20 12/21/20 Range/Units 18:59 18:59 18:59 WBC 10.9 H (3.8-10.6) k/uL RBC 3.20 L (3.80-5.40) m/uL Hgb 7.3 L (11.4-16.0) gm/dL Hct 23.3 L (34.0-46.0) % MCV 72.8 L (80.0-100.0) fL MCH 22.9 L (25.0-35.0) pg MCHC 31.5 (31.0-37.0) g/dL RDW 16.7 H (11.5-15.5) % Plt Count 89 L (150-450) k/uL MPV 8.6 Neutrophils % (Manual) 38 % Band Neuts % (Manual) 18 % Lymphocytes % (Manual) 37 % Monocytes % (Manual) 1 % Eosinophils % (Manual) 1 % Metamyelocytes % 5 % Myelocytes % 1 % Neutrophils # (Manual) 6.10 (1.3-7.7) k/uL Lymphocytes # (Manual) 4.03 (1.0-4.8) k/uL Monocytes # (Manual) 0.11 (0-1.0) k/uL Eosinophils # (Manual) 0.11 (0-0.7) k/uL Metamyelocytes # (Man) 0.55 H (0) k/uL Myelocytes # (Manual) 0.11 H (0) k/uL Nucleated RBCs 22 H (0-0) /100 WBC Manual Slide Review Performed Hypochromasia Moderate Poikilocytosis Slight Anisocytosis Slight Microcytosis Moderate Ovalocytes Present Fragmented RBCs Present PT 17.0 H (9.0-12.0) sec INR 1.7 H (<1.2) APTT 36.2 H (22.0-30.0) sec D-Dimer >34.10 H (<0.60) mg/L FEU Sample Site ABG pH (7.35-7.45) ABG pCO2 (35-45) mmHg ABG pO2 (83-108) mmHg ABG HCO3 (21-25) mmol/L ABG Total CO2 (19-24) mmol/L ABG O2 Saturation (94-97) % ABG Base Excess mmol/L Edwin Test FiO2 % Sodium 141 (137-145) mmol/L Potassium 4.0 (3.5-5.1) mmol/L Chloride 109 H (98-107) mmol/L Carbon Dioxide 19 L (22-30) mmol/L Anion Gap 13 mmol/L BUN 46 H (7-17) mg/dL Creatinine 1.81 H (0.52-1.04) mg/dL Est GFR (CKD-EPI)AfAm 30 (>60 ml/min/1.73 sqM) Est GFR (CKD-EPI)NonAf 26 (>60 ml/min/1.73 sqM) Glucose 164 H (74-99) mg/dL POC Glucose (mg/dL) (75-99) mg/dL POC Glu Resource Engineer ID Calcium 6.7 L (8.4-10.2) mg/dL Magnesium 3.6 H (1.6-2.3) mg/dL Total Bilirubin 1.6 H (0.2-1.3) mg/dL AST 4694 H (14-36) U/L ALT 2064 H (4-34) U/L Alkaline Phosphatase 59 (38-126) U/L Creatine Kinase 229 H (30-135) U/L Troponin I (0.000-0.034) ng/mL Total Protein 3.1 L (6.3-8.2) g/dL Albumin 1.6 L (3.5-5.0) g/dL TSH 1.990 (0.465-4.680) mIU/L Urine Color Urine Appearance (Clear) Urine pH (5.0-8.0) Ur Specific [place] (1.001-1.035) Urine Protein (Negative) Urine Glucose (UA) (Negative) Urine Ketones (Negative) Urine Blood (Negative) Urine Nitrite (Negative) Urine Bilirubin (Negative) Urine Urobilinogen (<2.0) mg/dL Ur Leukocyte Esterase (Negative) Urine RBC (0-5) /hpf Urine WBC (0-5) /hpf Ur Squamous Epith Cells (0-4) /hpf Urine Bacteria (None) /hpf Hyaline Casts (0-2) /lpf Urine Mucus (None) /hpf Blood Type Recheck Bld Type Recheck Status 12/21/20 12/21/20 Range/Units 18:59 19:50 WBC (3.8-10.6) k/uL RBC (3.80-5.40) m/uL Hgb (11.4-16.0) gm/dL Hct (34.0-46.0) % MCV (80.0-100.0) fL MCH (25.0-35.0) pg MCHC (31.0-37.0) g/dL RDW (11.5-15.5) % Plt Count (150-450) k/uL MPV Neutrophils % (Manual) % Band Neuts % (Manual) % Lymphocytes % (Manual) % Monocytes % (Manual) % Eosinophils % (Manual) % Metamyelocytes % % Myelocytes % % Neutrophils # (Manual) (1.3-7.7) k/uL Lymphocytes # (Manual) (1.0-4.8) k/uL Monocytes # (Manual) (0-1.0) k/uL Eosinophils # (Manual) (0-0.7) k/uL Metamyelocytes # (Man) (0) k/uL Myelocytes # (Manual) (0) k/uL Nucleated RBCs (0-0) /100 WBC Manual Slide Review Hypochromasia Poikilocytosis Anisocytosis Microcytosis Ovalocytes Fragmented RBCs PT (9.0-12.0) sec INR (<1.2) APTT (22.0-30.0) sec D-Dimer (<0.60) mg/L FEU Sample Site Right Radial ABG pH 7.06 L* (7.35-7.45) ABG pCO2 38 (35-45) mmHg ABG pO2 160 H (83-108) mmHg ABG HCO3 11 L (21-25) mmol/L ABG Total CO2 12 L (19-24) mmol/L ABG O2 Saturation 97.8 H (94-97) % ABG Base Excess -19.5 mmol/L Edwin Test Yes FiO2 100 % Sodium (137-145) mmol/L Potassium (3.5-5.1) mmol/L Chloride (98-107) mmol/L Carbon Dioxide (22-30) mmol/L Anion Gap mmol/L BUN (7-17) mg/dL Creatinine (0.52-1.04) mg/dL Est GFR (CKD-EPI)AfAm (>60 ml/min/1.73 sqM) Est GFR (CKD-EPI)NonAf (>60 ml/min/1.73 sqM) Glucose (74-99) mg/dL POC Glucose (mg/dL) (75-99) mg/dL POC Glu Resource Engineer ID Calcium (8.4-10.2) mg/dL Magnesium (1.6-2.3) mg/dL Total Bilirubin (0.2-1.3) mg/dL AST (14-36) U/L ALT (4-34) U/L Alkaline Phosphatase (38-126) U/L Creatine Kinase (30-135) U/L Troponin I 0.049 H* (0.000-0.034) ng/mL Total Protein (6.3-8.2) g/dL Albumin (3.5-5.0) g/dL TSH (0.465-4.680) mIU/L Urine Color Urine Appearance (Clear) Urine pH (5.0-8.0) Ur Specific [place] (1.001-1.035) Urine Protein (Negative) Urine Glucose (UA) (Negative) Urine Ketones (Negative) Urine Blood (Negative) Urine Nitrite (Negative) Urine Bilirubin (Negative) Urine Urobilinogen (<2.0) mg/dL Ur Leukocyte Esterase (Negative) Urine RBC (0-5) /hpf Urine WBC (0-5) /hpf Ur Squamous Epith Cells (0-4) /hpf Urine Bacteria (None) /hpf Hyaline Casts (0-2) /lpf Urine Mucus (None) /hpf Blood Type Recheck Bld Type Recheck Status Disposition Clinical Impression: Cardiac arrest, Signs of return of spontaneous circulation, Hypoglycemia, Hypotension, Pneumonia, Acidosis, Chronic renal insufficiency, Anemia, Recent fracture of hip, Elevated troponin, Elevated d-dimer Disposition: Referrals: Reginald Garcia DO [Primary Care Provider] - 1-2 days Preliminary Cause of : Sudden cardiac Procedures - Orange Protocol (Time Out) Procedure Performed:: central line Performing Provider: Edward Agudelo Nurse: Lakshmi Moser Patient Identification (2 identifiers required): Chart, Verbal, Arm Band, Name, Birthdate, Medical Record Number, Social Security Number Patient/Legal Claims Adjustor has Confirmed: Identity, Site, Procedure, Consent Site: right subclavian Site Marked: Yes Site Verified With Patient/Guardian: Yes
[2020-12-21 23:03] VITALS: PULSE 0; RESP 0
[2020-12-21] MEDS: cefTRIAXone IN SWFI 1,000 MG/10 ML SYRINGE IVP SCH ×2 (23:46→23:49)
[2020-12-22] MEDS ORDERED: PIPERACILLIN-TAZOBACTAM 3.375 GM in SODIUM CHLORIDE 0.9% 100 ML IVPB SCH ×2
--- NOTE | 2020-12-22 13:52 | P.DS ---
Providers Expected date of discharge: 12/21/20 Consults: 12/21/20 22:04 Consult Physician Routine Consulting Provider: Yevgeniy Posadas Consult Reason/Comments: Cardiac arrest Do you want consulting provider notified?: Yes 12/21/20 22:19 Consult Physician Stat Consulting Provider: Aroldo Ambrosio Consult Reason/Comments: ICU and ventilator management Do you want consulting provider notified?: Already Contacted Primary care physician: [facility] Hospital Course: Chief Complaint: Cardiac arrest History of presenting complaint: This is a 80-year-old patient of Dr. Sammy Donohue. Patient had hip replaced 5 days ago. [facility] [place] [facility] Uses a walker. Patient is feeling dizzy tired. And she fell down from the toilet seat. She had no pulse. CPR was started. EMS was called out. Patient did receive about 7 was of epinephrine. In the ER she received 1 more. Pulse did come back. She was put on levo fed. Given 1 dose of atropine and sodium bicarbonate. Intubated. Dr. Ambrosio from [facility] was contacted and patient being admitted to the ICU. Patient's daughter at the bedside. Patient was seen by me in the ER. Late in the evening patient tolerated and finally . Dr. Roque ring from ER informed me. Midwife Practitioner: Dr. Ambrosio- [facility] Past medical history to include: Hypertension, diabetes, arthritis [facility] Family history: Patient cannot tell INVESTIGATIONS, reviewed in the clinical context: White count 10.9 hemoglobin 7.3 platelets 89 ABG-pH 7.06 pO2 160 potassium 4 bicarb 19 BUN 46 creatinine 1.81 AST 4694 ALT 2064 Troponin I 0.049 Chest CTA-no evidence of PE, bilateral pneumonia, bilateral rib fractures and probable sternal fracture Computed tomography scan of the brain and spine without contrast-cerebral atrophy. Spondylytic changes Chest x-ray film personally reviewed by me-bilateral infiltrates Cause of : Aspiration pneumonia Assessment: -Cardiac arrest in the field witnessed. Patient received about 7 epinephrine. Currently on levo fed. Also see 1 dose of atropine. -Acute hypoxic respiratory failure requiring ventilator assistance -Cardiogenic shock requiring levo fed -Bilateral pneumonia suspected aspiration -Obesity BMI 33.9 -Essential hypertension -Diabetes mellitus type 2 chronically on insulin -Primary osteoarthritis -Recent left hip replacement 6 days ago -Anoxic brain injury -DO NOT RESUSCITATE Disposition: Patient Plan - Discharge Summary New Discharge Prescriptions: No Action Acetaminophen [Tylenol Arthritis] 650 mg PO Q6H PRN PRN Reason: Mild Pain Labetalol [Trandate] 200 mg PO Q8H Insulin Aspart [NovoLOG Flexpen] 20 units SQ BID@0900,1700 hydrALAZINE HCL [Apresoline] 50 mg PO BID calcitrioL [Rocaltrol] 0.25 mcg PO DAILY Aspirin EC [Ecotrin Low Dose] 81 mg PO BID Sennosides [Senna] 8.6 mg PO Q12H PRN PRN Reason: Constipation Discharge Medication List Acetaminophen [Tylenol Arthritis] 650 mg PO Q6H PRN 12/21/20 [History] Aspirin EC [Ecotrin Low Dose] 81 mg PO BID 12/21/20 [History] Insulin Aspart [NovoLOG Flexpen] 20 units SQ BID@0900,1700 12/21/20 [History] Labetalol [Trandate] 200 mg PO Q8H 12/21/20 [History] Sennosides [Senna] 8.6 mg PO Q12H PRN 12/21/20 [History] calcitrioL [Rocaltrol] 0.25 mcg PO DAILY 12/21/20 [History] hydrALAZINE HCL [Apresoline] 50 mg PO BID 12/21/20 [History] Follow up Appointment(s)/Referral(s): Reginald Garcia DO [Primary Care Provider] - 1-2 days Discharge Disposition: - Preliminary Cause of Preliminary Cause of : Aspiration pneumonia
== END 2020-12-22 01:57 | disposition expired ==
LOC: EC 18:49
DX: I46.9 Cardiac arrest, cause unspecified (principal); I12.9 Hypertensive chronic kidney disease with stage 1 through stage 4 chronic kidney disease, or unspecified chronic kidney disease; E11.649 Type 2 diabetes mellitus with hypoglycemia without coma; E11.22 Type 2 diabetes mellitus with diabetic chronic kidney disease; D63.1 Anemia in chronic kidney disease; N18.9 Chronic kidney disease, unspecified; I45.10 Unspecified right bundle-branch block; J69.0 Pneumonitis due to inhalation of food and vomit; E87.2 Acidosis; R79.89 Other specified abnormal findings of blood chemistry; R77.8 Other specified abnormalities of plasma proteins; S72.009A Fracture of unspecified part of neck of unspecified femur, initial encounter for closed fracture; R57.0 Cardiogenic shock; E66.9 Obesity, unspecified; M19.91 Primary osteoarthritis, unspecified site; G93.1 Anoxic brain damage, not elsewhere classified; J96.01 Acute respiratory failure with hypoxia; Z79.82 Long term (current) use of aspirin; Z79.4 Long term (current) use of insulin; Z79.899 Other long term (current) drug therapy; Z68.33 Body mass index [BMI] 33.0-33.9, adult; Z96.642 Presence of left artificial hip joint; Z66 Do not resuscitate; X58.XXXA Exposure to other specified factors, initial encounter
CPT/HCPCS: 36415; 36600; 93005; 86900; 86901; 85379; 80053; 82550; 82805; 83735; 84443; 84484; 85025; 85610; 85730; 86850; 81001; 71045; 72125; 70450; 71275; 99291; 31500; 36556; 96365; 96366 ×3; 96375 ×2; J0461; J0171; Q9967; 94002